=== PATIENT | female | born 1965 | race Caucasian/White ===

== ENCOUNTER → 2020-04-27 11:01 | Outpatient (CLI) | payer BC ==
[2019-12-25 23:00] VITALS: BMI 38.5
[~2020-04-27 11:01] MED LIST: BAYER CHEWABLE81 MG PO; COZAAR50 MG PO; CYMBALTA30 MG PO; FUROSEMIDE20 MG PO; GLIPIZIDE10 MG PO; GLUCOPHAGE500 MG PO; HYDROCHLOROTHIA25 MG PO; LIPITOR10 MG PO; NEURONTIN600 MG PO; OMEPRAZOLE20 M1 PO; PIOGLITAZONE15 MG PO; TOPAMAX100 MG PO; VITAMIN D5000 UNI2 PO; ZANAFLEX2 M1 PO; ZOFRAN4 MG PO
[2020-04-27 11:39] LABS: BASOPHILS 0.3 % (0-2); EOSINOPHILS 0.9 % (0-7); HEMATOCRIT 40.2 % (36.0-48.0); IMMATURE GRANULOCYTES 0.3 % (0-5); LYMPHOCYTE ABS# 2.11 10x3/uL (1.18-3.74); LYMPHOCYTES 28.6 % (15-50); MCH 28.3 pg (26.0-34.0); MCHC 32.3 g/dL (31.0-37.0); MCV 87.4 fL (80.0-100.0); MEAN PLATELET VOLUME 9.2 fL (7.4-10.4); MONOCYTES 4.7 % (2-11); NEUTROPHIL ABS# 4.82 10x3/uL (1.56-6.13); NEUTROPHILS 65.2 % (40-80); PLATELET COUNT 215 10x3/uL (130-400); RDW 14.6 % (11.5-14.5); WBC 7.4 10x3/uL (4.8-10.8)
[2020-04-27 11:55] LABS: ALBUMIN 4.1 g/dL (3.4-5.0); ANION GAP 16.2 mmol/L (8-16); BILIRUBIN - TOTAL 0.4 mg/dL (0.2-1.3); CALCIUM 9.6 mg/dL (8.5-10.1); POTASSIUM - SERUM 4.2 mmol/L (3.5-5.1); PROTEIN - SERUM 7.2 g/dL (6.4-8.2)
== END | disposition home or self-care (01) ==
LOC: D.LAB 11:01
PROVIDERS: ATTEND Psychiatry & Neurology Neurology
DX: G43.909 Migraine, unspecified, not intractable, without status migrainosus (principal)

== ENCOUNTER 2020-06-08 08:37 | Inpatient (IN) | payer BC ==
[2020-06-08] VITALS (19 sets, daily range): BP systolic 122–160; BP diastolic 46–94
[~2020-06-08] VITALS: Ht 170.2 cm; Wt 106.3 kg
[2020-06-08] MEDS ORDERED: PLAVIX75 MG PO (08:52)
--- NOTE | 2020-06-08 09:22 | NUR ---
FSBS ON ARRIVAL 157. LUE WEAKNESS, NO OTHER S/S NOTED ON STOKE PROTOCOL CHECK.
[2020-06-08 09:25] LABS: BASOPHILS 0.3 % (0-2); CALC OSMOLALITY 290 mosm/kg (275-300); CALCIUM 9.3 mg/dL (8.5-10.1); CARBON DIOXIDE 24.2 mmol/L (21.0-32.0); CHLORIDE - SERUM 106 mmol/L (98-107); CREATININE - SERUM 1.1 mg/dL (0.6-1.3); EOSINOPHILS 2.1 % (0-7); HEMATOCRIT 38.5 % (36.0-48.0); HEMOGLOBIN 12.5 g/dL (12-16); IMMATURE GRANULOCYTES 0.4 % (0-5); LYMPHOCYTE ABS# 1.64 10x3/uL (1.18-3.74); LYMPHOCYTES 22.8 % (15-50); MCHC 32.5 g/dL (31.0-37.0); MCV 89.3 fL (80.0-100.0); MONOCYTES 10.7 % (2-11); NEUTROPHIL ABS# 4.58 10x3/uL (1.56-6.13); NEUTROPHILS 63.7 % (40-80); PLATELET COUNT 203 10x3/uL (130-400); POTASSIUM - SERUM 4.2 mmol/L (3.5-5.1); RBC 4.31 10x6/uL (4.00-5.40); SODIUM 141 mmol/L (136-145); UREA NITROGEN 29 mg/dL (7-18); WBC 7.2 10x3/uL (4.8-10.8); eGFR NON AFRICAN AMERICAN 55 mL/min (90-120)
[2020-06-08 09:27] LABS: APTT 31.8 SECONDS (22.8-39.4); INR 1.01 (0.85-1.17); PROTIME 12.3 SECONDS (11.6-15.0)
[2020-06-08 09:29] LABS: GLUCOSE 167 mg/dL (74-106)
--- NOTE | 2020-06-08 09:29 | NUR ---
PT STATED SHE IS FELLING WEIRD. UNABLE TO ANSWER QUESTIONS BEFORE, UNABLE TO LIFT LUE OR LLE, PUPILS SLUGGISH. FSBS 156. PT'S SPOUSE IS AT BEDSIDE.
--- NOTE | 2020-06-08 09:32 | NUR ---
PT NO LONGER RESPONDING TO ANY STIMULI. ERMD NOTIFIED.
[2020-06-08 09:39] LABS: ALBUMIN 3.5 g/dL (3.4-5.0); ALKALINE PHOSPHATASE 106 U/L (30-120); ALT (SGPT) 26 U/L (10-68); BILIRUBIN - TOTAL 0.38 mg/dL (0.2-1.3); CKMB 0.9 U/L (0.0-3.6); CREATINE KINASE 58 UL (21-215); MAGNESIUM - SERUM 2.3 mg/dL (1.8-2.4); PROTEIN - SERUM 7.1 g/dL (6.4-8.2); THYROID STIMULATING HORMONE 0.88 uIU/mL (0.36-3.74); TROPONIN-I < 0.017 ng/mL (0.000-0.060)
--- NOTE | 2020-06-08 16:07 | NUR ---
PATIENT ADMIT TO 2306 FROM THE ER AND ADMISSION DATA DONE. AT BEDSIDE AND QUESTIONS ANSWERED. SALINE LOCK IN PLACE SITE TIMED,DATED ,AND INITIALED. PATIENT UP TO BSC WITH LITTLE ASSISTANCE. LEFT SIDE WEAKER THAN THE RIGHT SIDE AND NOT ABLE TO FULLY SMILE FOR ME AT THIS TIME.
[2020-06-08 17:34] LABS: BILIRUBIN NEGATIVE (NEGATIVE); KETONE NEGATIVE (NEGATIVE); NITRITE NEGATIVE (NEGATIVE); UROBILINOGEN NORMAL mg/dL (< 2)
[2020-06-08 18:04] LABS: UDS - AMPHET NEGATIVE QUAL (NEGATIVE); UDS - BARB NEGATIVE QUAL (NEGATIVE); UDS - BENZO NEGATIVE QUAL (NEGATIVE); UDS - COCAINE NEGATIVE QUAL (NEGATIVE); UDS - OPIATE NEGATIVE QUAL (NEGATIVE); UDS - PCP NEGATIVE QUAL (NEGATIVE); UDS - THC NEGATIVE QUAL (NEGATIVE)
[2020-06-09] VITALS (17 sets, daily range): BP systolic 118–179; BP diastolic 43–99
--- NOTE | 2020-06-09 03:36 | NUR ---
Patient complained of a headache around 1900. Stated that the Ultram did not help at all. Patient was given Tylenol later on and she stated that it seemed to be more effective than the Ultram. Patient woke up at approx. 0300 complaining of another headache and opted to take another dose of Tylenol. Will continue to monitor.
--- NOTE | 2020-06-09 04:38 | NUR ---
SADIQ HERNANDEZ NP TO NOTIFY HER OF PATIENT'S CONTINUING HEADACHE AND WAS GIVEN A ONE TIME DOSE OF FIORICET.
[2020-06-09 04:53] LABS: BASOPHILS 0.2 % (0-2); EOSINOPHILS 2.2 % (0-7); HEMATOCRIT 36.2 % (36.0-48.0); HEMOGLOBIN 11.8 g/dL (12-16); IMMATURE GRANULOCYTES 0.5 % (0-5); LYMPHOCYTE ABS# 1.29 10x3/uL (1.18-3.74); MCH 28.6 pg (26.0-34.0); MCHC 32.6 g/dL (31.0-37.0); MCV 87.7 fL (80.0-100.0); MEAN PLATELET VOLUME 9.9 fL (7.4-10.4); MONOCYTES 9.5 % (2-11); NEUTROPHIL ABS# 3.85 10x3/uL (1.56-6.13); NEUTROPHILS 65.6 % (40-80); PLATELET COUNT 204 10x3/uL (130-400); RBC 4.13 10x6/uL (4.00-5.40); RDW 14.9 % (11.5-14.5); WBC 5.9 10x3/uL (4.8-10.8)
[2020-06-09 05:28] LABS: ALBUMIN 3.1 g/dL (3.4-5.0); ALKALINE PHOSPHATASE 90 U/L (30-120); ALT (SGPT) 24 U/L (10-68); BILIRUBIN - TOTAL 0.36 mg/dL (0.2-1.3); CALCIUM 8.7 mg/dL (8.5-10.1); CARBON DIOXIDE 23.2 mmol/L (21.0-32.0); CHLORIDE - SERUM 107 mmol/L (98-107); CKMB 0.7 U/L (0.0-3.6); CREATINE KINASE 37 UL (21-215); CREATININE - SERUM 1.1 mg/dL (0.6-1.3); GLUCOSE 158 mg/dL (74-106); POTASSIUM - SERUM 3.7 mmol/L (3.5-5.1); PROTEIN - SERUM 6.4 g/dL (6.4-8.2); SODIUM 141 mmol/L (136-145); TROPONIN-I < 0.017 ng/mL (0.000-0.060); eGFR NON AFRICAN AMERICAN 55 mL/min (90-120)
[2020-06-09 05:45] LABS: CALC OSMOLALITY 286 mosm/kg (275-300); UREA NITROGEN 21 mg/dL (7-18)
[2020-06-10] VITALS (12 sets, daily range): BP systolic 127–184; BP diastolic 62–103; Ht 170.2 cm; Wt 106.3 kg
--- NOTE | 2020-06-10 02:56 | NUR ---
I have reviewed this patient and I concur with the Shift Assessment completed by the Licensed Practical Nurse today this shift.
[2020-06-10 04:43] LABS: HEMATOCRIT 37.6 % (36.0-48.0); HEMOGLOBIN 12.3 g/dL (12-16); MCH 28.7 pg (26.0-34.0); MCHC 32.7 g/dL (31.0-37.0); MCV 87.6 fL (80.0-100.0); RBC 4.29 10x6/uL (4.00-5.40); RDW 14.8 % (11.5-14.5); WBC 4.7 10x3/uL (4.8-10.8)
[2020-06-10 04:51] LABS: PLT FUNCT.(P2Y12) PLAVIX 140 PRU (194-418)
[2020-06-10 04:56] LABS: INR 1.08 (0.85-1.17)
[2020-06-10 05:11] LABS: ALBUMIN 3.6 g/dL (3.4-5.0); ANION GAP 15.4 mmol/L (8-16); BILIRUBIN - TOTAL 0.32 mg/dL (0.2-1.3); CALCIUM 9.2 mg/dL (8.5-10.1); CARBON DIOXIDE 22.2 mmol/L (21.0-32.0); CREATININE - SERUM 0.9 mg/dL (0.6-1.3); POTASSIUM - SERUM 3.6 mmol/L (3.5-5.1)
--- NOTE | 2020-06-10 08:51 | NUR ---
SPOKE W/ VIDAL BONDS WITH DR. OLVERA ABOUT CONSISTENTLY HIGH BPS W/O PRN MEDS. SHE WILL LET ME KNOW WHAT HE ORDERS.
[2020-06-10 11:19] LABS: BILIRUBIN NEGATIVE (NEGATIVE); KETONE NEGATIVE (NEGATIVE); NITRITE NEGATIVE (NEGATIVE); UROBILINOGEN NORMAL mg/dL (< 2); WHITE CELLS - URINE 0-5 HPF (0-4)
[2020-06-10 11:20] LABS: BACTERIA FEW HPF (NONE SEEN); SQUAMOUS EPITHELIAL 0-5 HPF (0-4)
--- NOTE | 2020-06-10 11:49 | NUR ---
DR. PUSHPA JACOBO. DISCUSSED HTN. ORDERS RECEIVED.
--- NOTE | 2020-06-10 13:24 | NUR ---
REPORT GIVEN TO SANTI.
--- NOTE | 2020-06-10 13:51 | NUR ---
RECIEVED PT FROM ICU ALERT AND ORIENTED. AT BEDSIDE, NO OTHER NEEDS AT THIS TIME.
--- NOTE | 2020-06-10 15:33 | NUR ---
OT NOTE: PT SEEN IN AFTERNOON. PT HAD BEEN TRANSFERRED TO THE FLOOR. PT MUCH MORE ALERT AND REPORTING THAT SHE WAS FEELING BETTER. BED MOB WITH SPV; MIN ASSIST REQUIRED TO MARIO SOCKS; SIT TO STAND WITH MIN ASSIST; IN ROOM AMBULATION WITH CGA; AMB INTO HALLWAY APPROX 50 FT WITH MIN ASSIST AND NO ADAP DEVICE..PT REPORTS INCREASED DIZZINESS DURNG AMBULATION. PT AND ASKING QUESTIONS REGARDING UPCOMING SX TOMORROW. QUESTIONS ANSWERED TO THE BEST OF MY KNOWLEDGE. SAUNDRA BECKHAM, OTR/L [phone]
--- NOTE | 2020-06-10 19:28 | NUR ---
PT VISITING WITH SPOUSE, AND EATING DINNER, INFORMED PT THAT I WILL BE BACK SHORTLY TO DO ASSESSMENT, PT VERBALIZES UNDERSTANDING, DENIES NEEDS AT THIS TIME
--- NOTE | 2020-06-10 20:30 | NUR ---
ASSESSMENT PER FLOW SHEET, VS OBTAINED PER MAINTENANCE MACHINIST, PT REPORTS FLATUS, NO BM, AND VOIDING WITH NO DIFFICULTY, RENZO HINES, ELECTROCHEMIST NURSE RESTARTED IV IN LEFT HAND, FIRST ATTEMPT, NS RESTARTED AT 50ML/HR PER MD ORDERS, PT DENIES NEEDS AT THIS TIME, SPOUSE PROVIDED BEDDING
--- NOTE | 2020-06-10 21:35 | NUR ---
OBTAINED FSBS, ADM 2100 MEDS PER MD ORDERS, SEE EMAR, PT DENIES NEEDS OR PAIN AT THIS TIME, SPOUSE AT BEDSIDE
--- NOTE | 2020-06-10 22:43 | NUR ---
PT RESTING WITH EYES CLOSED, RESP QUIET, NO DISTRESS NOTED, LEFT UNDISTURBED AT THIS TIME, SPOUSE ASLEEP AT BEDSIDE
[2020-06-11] VITALS (31 sets, daily range): BP systolic 120–177; BP diastolic 41–77
--- NOTE | 2020-06-11 00:34 | NUR ---
PT RESTING WITH EYES CLOSED, RESP QUIET, NO DISTRESS NOTED, LEFT UNDISTURBED AT THIS TIME, SPOUSE ASLEEP AT BEDSIDE
--- NOTE | 2020-06-11 02:23 | NUR ---
PT RESTING WITH EYES CLOSED, RESP QUIET, NO DISTRESS NOTED, LEFT UNDISTURBED AT THIS TIME, SPOUSE ASLEEP AT BEDSIDE
--- NOTE | 2020-06-11 04:47 | NUR ---
PT RESTING WITH EYES CLOSED, RESP QUIET, NO DISTRESS NOTED, LEFT UNDISTURBED AT THIS TIME, SPOUSE ASLEEP AT BEDSIDE
--- NOTE | 2020-06-11 06:15 | NUR ---
PT AWAKE, C/O URIBE, INFORMED PT THAT SHE CAN NOT HAVE ANY MEDS DUE TO NPO AND SX THIS AM, VS OBTAINED IN BOTH ARMS, WEIGHT OBTAINED VIA BEDSCALE, PT GIVEN HIBICLENSE BATH, COMPLETE BEDDING CHANGE DONE, PT UP TO BR WITH ASSISTANCE, VOIDED WITH NO DIFFICULTY, CLEAN GOWN APPLIED, PT BACK TO BED, EKG DONE, BED IN LOW POSITION, SIDE RAILS X 2, CALL LIGHT IN REACH
--- NOTE | 2020-06-11 07:00 | NUR ---
SHIFT REPORT TO DAY SHIFT NURSE
--- NOTE | 2020-06-11 08:33 | NUR ---
PT RECEIVED AWAKE IN BED, FAMILY AT BEDSIDE. NPO FOR SURGERY TODAY. WILL GIVE HEART MEDS WITH SIP. BP SLIGHTLY ELEVATED BUT STABLE. COMPLAINTS OF HEADACHE.
--- NOTE | 2020-06-11 09:00 | NUR ---
TECH IN ROOM PLACING EEG LEADS ON FOR SURGERY.
[2020-06-11 10:19] LABS: ALBUMIN 3.6 g/dL (3.4-5.0); ANION GAP 15.2 mmol/L (8-16); BILIRUBIN - TOTAL 0.32 mg/dL (0.2-1.3); CALCIUM 9.8 mg/dL (8.5-10.1); CARBON DIOXIDE 23.3 mmol/L (21.0-32.0); CREATININE - SERUM 0.9 mg/dL (0.6-1.3); POTASSIUM - SERUM 3.5 mmol/L (3.5-5.1); PROTEIN - SERUM 7.1 g/dL (6.4-8.2)
[2020-06-11 10:21] LABS: BASOPHILS 0.4 % (0-2); EOSINOPHILS 1.6 % (0-7); HEMATOCRIT 37.7 % (36.0-48.0); HEMOGLOBIN 12.5 g/dL (12-16); IMMATURE GRANULOCYTES 0.4 % (0-5); LYMPHOCYTE ABS# 1.54 10x3/uL (1.18-3.74); LYMPHOCYTES 27.4 % (15-50); MCH 29.1 pg (26.0-34.0); MCHC 33.2 g/dL (31.0-37.0); MCV 87.7 fL (80.0-100.0); MEAN PLATELET VOLUME 9.5 fL (7.4-10.4); MONOCYTES 10.5 % (2-11); NEUTROPHIL ABS# 3.36 10x3/uL (1.56-6.13); NEUTROPHILS 59.7 % (40-80); PLATELET COUNT 223 10x3/uL (130-400); RDW 14.9 % (11.5-14.5); WBC 5.6 10x3/uL (4.8-10.8)
--- NOTE | 2020-06-11 14:23 | NUR ---
PATIENT ON HOLD PER NSG FOR GOING TO PROCEDURE.
--- NOTE | 2020-06-11 16:54 | NUR ---
OT NOTE: HOLD THERAPY PER NURSING.
--- NOTE | 2020-06-11 17:49 | NUR ---
PT RECIEVED TO ROOM ALERT, COMPLAINING OF PAIN FROM CATHETER PLACEMENT, REOREINTED, CLEVIPREX AND NITRO INFUSING FOR BP MANAGEMEN T, [address] OLVERA AND RECIEVED ORDERS FOR LOPRESSOR, 1730 RECIEVED ORDERS TO GIVE 50 COZAAR AT 1830 AND TO GIVE 12.5 LOPRESSOR EARLY. AT BEDSIDE AND DENIES ALL QUESTIONS
[2020-06-12] VITALS (88 sets, daily range): BP systolic 96–195; BP diastolic 38–95
[2020-06-12 04:02] LABS: BASOPHILS 0.1 % (0-2); EOSINOPHILS 0.2 % (0-7); HEMATOCRIT 31.6 % (36.0-48.0); HEMOGLOBIN 10.3 g/dL (12-16); IMMATURE GRANULOCYTES 0.5 % (0-5); LYMPHOCYTE ABS# 1.13 10x3/uL (1.18-3.74); LYMPHOCYTES 11.9 % (15-50); MCH 28.6 pg (26.0-34.0); MCHC 32.6 g/dL (31.0-37.0); MCV 87.8 fL (80.0-100.0); MEAN PLATELET VOLUME 9.6 fL (7.4-10.4); MONOCYTES 9.5 % (2-11); NEUTROPHIL ABS# 7.36 10x3/uL (1.56-6.13); NEUTROPHILS 77.8 % (40-80); PLATELET COUNT 209 10x3/uL (130-400); RDW 15.2 % (11.5-14.5); WBC 9.5 10x3/uL (4.8-10.8)
[2020-06-12 04:25] LABS: ALBUMIN 2.9 g/dL (3.4-5.0); ANION GAP 17.7 mmol/L (8-16); BILIRUBIN - TOTAL 0.28 mg/dL (0.2-1.3); CALCIUM 7.6 mg/dL (8.5-10.1); CARBON DIOXIDE 18.6 mmol/L (21.0-32.0); MAGNESIUM - SERUM 1.5 mg/dL (1.8-2.4); POTASSIUM - SERUM 3.3 mmol/L (3.5-5.1); PROTEIN - SERUM 5.7 g/dL (6.4-8.2)
[2020-06-12 04:28] LABS: CREATININE - SERUM 1.5 mg/dL (0.6-1.3)
--- NOTE | 2020-06-12 10:55 | NUR ---
Nutrition Follow-up: POD 1 R carotid endarterectomy. Nursing reports no PO intake this AM 2/2 nausea. Diet: Clear Liquid -> Diabetic Wt: 232# (06/12); 222.7# (06/09) Labs noted: Na 146, K+ 3.3, BUN 20, Cre 1.5, GFR 38, Glu 179, Ca 7.6, Mg 1.5, Alb 2.9 Meds noted: Humulin, Protonix, electrolyte protocol -Advance diet as tolerated. - follow-up: 06/15
--- NOTE | 2020-06-12 15:47 | NUR ---
PT C/O SEVERE HEADACHE. WILL ADMINISTER PRN PAIN MED FOR HEADACHE
--- NOTE | 2020-06-12 18:22 | OP ---
PATIENT NAME: GRANT CLARK MEDICAL RECORD: [id number] :65 LOCATION:[id number] ADMISSION DATE:06/08/20 SURGEON: SUHAIL OLVERA MD DATE OF OPERATION: 06/11/2020 SURGEON: Suhail Olvera MD PROCEDURE PERFORMED: Right carotid endarterectomy. PREOPERATIVE DIAGNOSIS: Symptomatic right carotid stenosis and asymptomatic left carotid stenosis. POSTOPERATIVE DIAGNOSIS: Symptomatic right carotid stenosis and asymptomatic left carotid stenosis. ANESTHESIA: General endotracheal anesthesia. ESTIMATED BLOOD LOSS: 20 cc. COMPLICATIONS: None. SPECIMENS: Plaque with ulcer. CONDITION: Stable. DISPOSITION: CV ICU. OPERATIVE FINDINGS: Severely calcified plaque with a 2-3 mm ulcer in the center. Ulcerated plaque in the center of the plaque just at the origin of the internal carotid. The plaque was divided distally and had significant plaque extending well down the common carotid that was removed as far as feasible from the neck, distally the plaque was tacked. The arteriotomy was closed with a CorMatrix patch. Neurologically intact to ICU. OPERATIVE INDICATION: Symptomatic right carotid stenosis with right hemispheric TIA, recurrent. PROCEDURE IN DETAIL: The patient was brought to the operative suite. General anesthesia was obtained, the patient was prepped and draped. An oblique incision was made in the right neck, taken down through the subcutaneous tissue and large facial venous branch were divided between ligatures and suture ligatures. The common carotid was dissected out, freed from the vagus nerve, encircled with an umbilical tape. External carotid and thyroid branch were encircled with vessel loops. The hypoglossal nerve was identified and kept out of harm's way. The distal internal carotid was dissected out and encircled with a vessel loop. Heparin was given. After the heparin had circulated backbleeding from the internal carotid was controlled with a bulldog clamp. Inflow controlled with a vascular clamp. Backbleeding in the external carotid and tyroid branch controlled with vessel loops. EEG and cerebral oximetry were monitored, and after 2 minutes, there was no change. Therefore, an arteriotomy was begun in the common carotid artery taken out through the region of dense calcification into a relatively normal region of internal carotid. The plaque was divided in the common carotid artery with an eversion endarterectomy of the OPERATIVE REPORT [id number] GRANT CLARK external carotid and the plaque feathered distally, but was divided due to a thick intima. Visualizing the plaque a discrete ulcerated plaque was identified, likely the source of her stroke. Thorough irrigation was undertaken. All bits of loose debris were removed. The patch was fashioned to the appropriate size and sutured along the edge of the arteriotomy. Prior to completing the anastomosis, backbleeding was allowed from all 3 major vessels. Then, the endarterectomy bed was again flushed with saline and the anastomosis completed. Flow was first restored to the external carotid, then the internal carotid. Cerebral monitoring remained normal. Sutures were used for hemostasis. Protamine was given. A drain was placed through a separate stab wound. Thorough antibiotic irrigation was performed. The neck was closed in 3 layers. Dermabond was placed on the skin. The patient neurologically intact to ICU. TRANSINT:[id number] Voice Confirmation ID: [id number] DOCUMENT ID: [id number] SUHAIL OLVERA MD at 1822 CC: ANETTE MIN MD and KARLEE REYES MD [id number] DICTATION DATE: 06/11/20 1655 TRAIN RESERVATION CLERK: 06/11/20 2108 ADM IN [facility] [address] [id number]
[2020-06-13] VITALS (40 sets, daily range): BP systolic 101–160; BP diastolic 35–72
[2020-06-13 04:49] LABS: BASOPHILS 0.1 % (0-2); EOSINOPHILS 0.5 % (0-7); HEMATOCRIT 29.8 % (36.0-48.0); HEMOGLOBIN 9.6 g/dL (12-16); IMMATURE GRANULOCYTES 0.4 % (0-5); LYMPHOCYTE ABS# 1.26 10x3/uL (1.18-3.74); LYMPHOCYTES 11.7 % (15-50); MCH 28.7 pg (26.0-34.0); MCHC 32.2 g/dL (31.0-37.0); MCV 89.2 fL (80.0-100.0); MEAN PLATELET VOLUME 9.8 fL (7.4-10.4); MONOCYTES 9.8 % (2-11); NEUTROPHIL ABS# 8.39 10x3/uL (1.56-6.13); NEUTROPHILS 77.5 % (40-80); PLATELET COUNT 191 10x3/uL (130-400); RBC 3.34 10x6/uL (4.00-5.40); RDW 15.3 % (11.5-14.5); WBC 10.8 10x3/uL (4.8-10.8)
[2020-06-13 05:13] LABS: ALBUMIN 2.7 g/dL (3.4-5.0); ANION GAP 15.1 mmol/L (8-16); BILIRUBIN - TOTAL 0.65 mg/dL (0.2-1.3); CALCIUM 8.1 mg/dL (8.5-10.1); CARBON DIOXIDE 21.8 mmol/L (21.0-32.0); CREATININE - SERUM 1.3 mg/dL (0.6-1.3); MAGNESIUM - SERUM 2.3 mg/dL (1.8-2.4); POTASSIUM - SERUM 3.9 mmol/L (3.5-5.1); PROTEIN - SERUM 5.8 g/dL (6.4-8.2)
--- NOTE | 2020-06-13 15:01 | NUR ---
0700 BEDSIDE SHIFT REPORT RECIEVED AND CARE ASSUMED OF PATIENT.. SEE FLOW SHEET FOR SHIFT ASSESMENT FINDINGS... IS AT THE BEDSIDE.. 0900 FSBS DONE BREAKFAST IS SERVED.. INSULIN GIVEN.. 0930 MEDS GIVEN PATIENT IS ASSISTED OOB TO CHAIR BY PHYSICAL THERAPY.. PO MEDS GIVEN.. DR CASH IN TO SEE PATIENT UP[DATE IS GIVEN.. 1200 LUNCH SERVED CONTINUES OOB IN THE CHAIR.. DR OLVERA IN TO SEE PATIENT.. 1400 ASSISTED BACK TO BED C/O NAUSEA,,, ZOFRAN GIVEN..
[2020-06-14] VITALS (13 sets, daily range): BP systolic 118–145; BP diastolic 41–70
[2020-06-14 06:19] LABS: BASOPHILS 0.1 % (0-2); HEMATOCRIT 27.6 % (36.0-48.0); HEMOGLOBIN 8.8 g/dL (12-16); IMMATURE GRANULOCYTES 0.6 % (0-5); LYMPHOCYTES 14.3 % (15-50); MCH 28.4 pg (26.0-34.0); MCHC 31.9 g/dL (31.0-37.0); MEAN PLATELET VOLUME 9.6 fL (7.4-10.4); MONOCYTES 9.3 % (2-11); NEUTROPHIL ABS# 5.17 10x3/uL (1.56-6.13); NEUTROPHILS 73.7 % (40-80); PLATELET COUNT 177 10x3/uL (130-400); RDW 14.6 % (11.5-14.5)
[2020-06-14 06:38] LABS: ALBUMIN 2.6 g/dL (3.4-5.0); ANION GAP 12.5 mmol/L (8-16); BILIRUBIN - TOTAL 0.45 mg/dL (0.2-1.3); CALCIUM 8.4 mg/dL (8.5-10.1); CARBON DIOXIDE 25.4 mmol/L (21.0-32.0); CREATININE - SERUM 0.9 mg/dL (0.6-1.3); MAGNESIUM - SERUM 2.1 mg/dL (1.8-2.4); POTASSIUM - SERUM 3.9 mmol/L (3.5-5.1); PROTEIN - SERUM 5.8 g/dL (6.4-8.2)
[2020-06-14] MEDS ORDERED: LOPRESSOR25 MG PO (13:14)
[2020-06-14] MEDS ORDERED: BRILINTA90 MG PO (13:16)
--- NOTE | 2020-06-14 13:22 | NUR ---
0700 BEDSIDE SHIFDT REPORT RECIEVED AND CARE ASSUMED OF PATIENT .. SEE FLOW SHEET FOR SHIFT ASSESMENT FINDINGS.. 0800 ZOFRAN FOR NAUSEA 0900 IN TO SEE PATIENT.. BROUGHT PATIENT BREAKFAST 0930 DR SHANE IN TO SEE PATIENT 1030 DR OLVERA IN TO SEE PATIENT.. 1130 DR OLVERA SPOKE WITH DAVID HARRISON APN ... SHE WILL WRITE DC ORDERS ON PATIENT.. 1200 FSBS DONE WITH INSULIN COVER.. LUNCH SERVED AND PATIENT IS FEEDING SELF..
--- NOTE | 2020-06-14 15:19 | MORECARE ---
CASE MANAGEMENT DISCHARGE SUMMARY PATIENT: GRANT CLARK UNIT: [id number] ADM DATE: 06/08/20 AGE: 55 : 65 SEX: F ROOM/BED: D.07 AUTHOR: WILLIAM,DOC PHYSICIAN: REFERRING PHYSICIAN: KATHERIN RUEDA MD DATE OF SERVICE: 06/14/20 Case Management Discharge Planning Summary COMMENTS ENTERED DATE: 06/14/20 15:16 CT COMMENT TYPE: Discharge Planning REVIEWER: Blake Munroe CM met with patient to complete DC plan and to evaluate needs. Patient lives independently with her , Mian Edmondson, . Patient stated that her home is safe and has electricity and running water. Patient stated that she has no problems paying for medications and she fills her medications at [facility]. Patient stated that her primary care physician is Dr. Muñoz. At discharge, the patient plans to return home and feels this is a safe discharge. CM discussed availability of home health, rehab services, and medical equipment. Patient declined HHS, SNF, IPR, and DME. Patient stated they have a ramp to enter her home and she has a cane and walker. Patient voiced no other needs at this time and is satisfied with DC plan. Transportation provider at discharge will be with her , Mian. CM will continue to follow and will assist as needed with dc plans/needs. [facility] REVIEW SUMMARY ANTICIPATED D/C DATE: 06/14/2020 EXPECTED LOS : 6 CASE STATUS: DCP Initiated INITIAL REVIEW: 06/08/2020 INITIAL REVIEWER: Blake Munroe FINAL DISCHARGE DISPOSITION: : FINAL REVIEWER: FINAL REVIEW DATE: [facility] Focus Questions & Answers MIP Evaluation QUESTION: ANSWER Patient and/or caregiver agree upon recommended discharge plan? : Yes Patient's current cognitive status: : *Oriented to person, place, situation, time and present Patient's ability to cope with chronic illness : d. No chronic illness Patient gives permission to discuss discharge plans with: (name, relationship and number) : her , Mian Edmondson, . Family / Caregiver's ability to cope with chronic illness: : a. Adequate (ability to meet patient's medical needs, ensures patient attends medical appts.) Does the patient have the ability to pay for or attain post discharge needs / services? : Yes Functional screen assessment: : Basic needs can adequately be met by self Family / Caregiver's ability to cope with chronic illness: : a. Adequate (ability to meet patient's medical needs, ensures patient attends medical appts.) Physical Status: : Independent with ADL's Equipment needed for post hospitalization: : None Is there a likelihood that the patient will require additional services to return to the preadmission environment? : No Living Arrangements: : Home with Spouse/Significant Other Patient with capacity for self-care or can be cared for in same environment as prior to hospitalization? : Yes Baseline cognitive status: : *Oriented to person, place, situation, time and present Physical environment modification needed / anticipated for discharge: : No Medication Management: : Patient states can read and understand medication labels Medication Management: : Patient states can afford medications Pharmacy name(s): : [facility] Does Patient have transportation to get home and to follow-up medical appointments when discharged from the hospital? : Yes Would patient like to participate in any Care Coordination programs (if applicable): : Not applicable Does the patient have electricity at home? : Yes Does the patient have running water in their house? : Yes Equipment in use: : Walker - Rolling Equipment in use: : Cane - Single Leg Mental health screen: : No mental health history DCP Re-evaluation QUESTION: ANSWER Would patient like to participate in any Care Coordination programs (if applicable): : Not applicable PATIENT: GRANT CLARK ENCOUNTER: [id number] MEDICAL RECORD#: [id number] ADMISSION DATE: 06/08/2020 DISCHARGE DATE: ATTENDING MD: KATHERIN MEDINA : AGE: 55 MARITAL STATUS: M DC PLAN ID: [id number] FACILITY: [facility] PRINTED ON: 06/14/20 15:18 CT All edits/amendments must be made on the electronic document DICTATION DATE: 06/14/201517 TELEGRAPH PLANT MAINTAINER: MARY 06/14/201517 RPT#: [id number] DC DATE: STATUS: ADM IN [facility] [address] [place] [address] END OF REPORT
--- NOTE | 2020-06-14 15:24 | NUR ---
1445 CVL REMOVED AND PIV DCd PATIENT DC INSTRUCTIONS ARE GIVEN AND PATIENT IS ESCORTED VIA WHEELCHAIR...
== END 2020-06-14 15:26 | disposition home or self-care (01) | DRG 38 ==
LOC: D.ER 08:37 → D.CVICU 10:56 → D.M2 10:56 → D.ICU 10:56 → D.M2 06-10 13:40 → D.CVICU 06-11 15:05
PROVIDERS: Emergency Medicine; Family Medicine; Thoracic Surgery (Cardiothoracic Vascular Surgery); ADMIT Family Medicine; ATTEND Family Medicine
PROC: 03CK0ZZ Extirpation of Matter from Right Internal Carotid Artery, Open Approach (ICD-10-PCS; principal; 2020-06-11 11:30)
DX: I65.23 Occlusion and stenosis of bilateral carotid arteries (principal); I69.954 Hemiplegia and hemiparesis following unspecified cerebrovascular disease affecting left non-dominant side; I10 Essential (primary) hypertension; E11.9 Type 2 diabetes mellitus without complications; E11.42 Type 2 diabetes mellitus with diabetic polyneuropathy